=== PATIENT | female | born 1970 | race Caucasian/White ===

== ENCOUNTER 2022-07-31 07:09 | Outpatient (CLI) | payer BC, SELFPAY ==
--- NOTE | 2022-07-31 07:15 | CRLHL7_ITS ---
For Patients: As a result of the Century Cures Act, medical imaging exams and procedure reports are released immediately into your electronic medical record. You may view this report before your referring provider. If you have questions, please contact your health care provider. INDICATION: Right calf pain COMPARISON: None. TECHNIQUE: A compression venous ultrasound exam was performed of the right lower extremity using ramirez-scale imaging, color Doppler and spectral Doppler analysis. FINDINGS: Sonographic imaging of the right lower extremity demonstrates normal compressibility and color Doppler venous blood flow within the common femoral vein, deep femoral vein, and the proximal greater saphenous vein. Within the thigh, the femoral vein is patent and compressible. At a lower level, the popliteal and posterior tibial veins also show normal compressibility and color Doppler venous blood flow. Limited imaging of the contralateral groin demonstrates a normal spectral waveform and color Doppler venous blood flow within the left common femoral vein. IMPRESSION: Normal venous ultrasound exam. No evidence of deep vein thrombosis within the right lower extremity. Dictated by Benito Mariscal MD @ 07/31/2022 8:51:27 AM (Electronically Signed)
== END 2022-07-31 07:10 | disposition home or self-care (01) ==
LOC: US 07:10
PROVIDERS: PCP Physician Assistant Medical; Visit Provider Emergency Medicine
DX: M79.661 Pain in right lower leg (principal)
CPT/HCPCS: 93971

== ENCOUNTER 2022-08-27 08:55 | Outpatient (CLI) | payer BC, SELFPAY ==
[2022-08-27 14:09] LABS: Albumin* 4.1 g/dL (3.3-5.0)
[2022-08-27 14:10] LABS: Chloride* 104 mmol/L (96-114); Sodium* 140 mmol/L (135-149)
[2022-08-27 14:12] LABS: Aspartate Amino Transferase* 24 U/L (12-35); Bilirubin Total* 0.5 mg/dL (0.1-1.5); Carbon Dioxide* 30 mmol/L (20-32); Cholesterol* 196 mg/dL (90-199); Creatinine* 0.8 mg/dL (0.5-1.5); Estimated Glomerular Filt Rate 90 ml/min; Total Protein* 6.7 g/dL (6.0-8.3)
[2022-08-27 14:13] LABS: Alanine Aminotransferase* 24 U/L (4-35); Alkaline Phosphatase* 89 U/L (40-150); Blood Urea Nitrogen* 10 mg/dL (7-30); Calcium* 9.3 mg/dL (8.4-10.6); Glucose* 138 mg/dL (60-115); HDL Cholesterol* 52 mg/dL (>=50); LDL Cholesterol Calculated 96 mg/dL (<100); Triglycerides* 240 mg/dL (40-149)
[2022-08-27 14:28] LABS: Creatinine Urine 270.3 mg/dL
[2022-08-27 14:30] LABS: Microalbumin Creatinine Ratio 0 mg/g (0-30); Microalbumin Urine 1 mg/dL
[2022-08-27 14:56] LABS: Vitamin B12* 176 pg/mL (243-894)
== END 2022-08-27 08:56 | disposition home or self-care (01) ==
PROVIDERS: PCP Physician Assistant Medical; Visit Provider Physician Assistant Medical
DX: Z00.00 Encounter for general adult medical examination without abnormal findings (principal); E11.9 Type 2 diabetes mellitus without complications; E78.5 Hyperlipidemia, unspecified; I10 Essential (primary) hypertension
CPT/HCPCS: 80053; 80061; 82043; 82570; 82607; 84443

== ENCOUNTER 2022-10-01 15:11 | Outpatient (CLI) | payer BC, SELFPAY ==
[2022-10-01 14:31] LABS: Vitamin B12* > 1000 pg/mL (243-894)
== END 2022-10-01 15:12 | disposition home or self-care (01) ==
PROVIDERS: PCP Physician Assistant Medical; Visit Provider Physician Assistant Medical
DX: E53.8 Deficiency of other specified B group vitamins (principal)
CPT/HCPCS: 82607

== ENCOUNTER 2022-10-17 10:59 | Outpatient (CLI) | payer BC, SELFPAY | END 2022-10-17 11:00 | disposition home or self-care (01) | PROVIDERS: PCP Physician Assistant Medical; Visit Provider Internal Medicine | DX: Z12.11 Encounter for screening for malignant neoplasm of colon (principal); K63.5 Polyp of colon | CPT/HCPCS: 45380; 45385; 88305; J2250; J3010 ==

== ENCOUNTER 2022-10-31 07:53 | Outpatient (CLI) | payer BC, SELFPAY ==
--- NOTE | 2022-10-31 08:15 | CRLHL7_ITS ---
For Patients: As a result of the Cures Act, medical imaging exams and procedure reports are released immediately into your electronic medical record. You may view this report before your referring provider. If you have questions, please contact your health care provider. BILATERAL SCREENING MAMMOGRAM WITH COMPUTER-AIDED DETECTION AND TOMOSYNTHESIS TECHNIQUE: CC and MLO views were obtained. These mammographic images have been obtained using full-field digital technique. These mammographic images were interpreted with the benefit of computer-aided detection. Breast tomosynthesis was used in this interpretation. COMPARISON FILM: 10/02/20, 11/04/19, 10/27/18. FINDINGS: The breasts are heterogeneously dense, which may obscure small masses. IMPRESSION: There is no radiographic evidence for malignancy. ASSESSMENT: BI-RADS Category 2: Benign RECOMMENDATION: Routine screening mammogram in 1 year. A lay language report of this examination will be provided to the patient. FITO BRITTON M.D. Diagnostic/Nuclear Medicine Radiologist [email or web address] LAZARO:[email or web address] Transcribed: 10/31/2022, 1:[address]/Dictated by: Fito Britton MD @ 10/31/2022 9:16:00 AM (Electronically Signed)
== END 2022-10-31 07:54 | disposition home or self-care (01) ==
LOC: MAMMO 07:54
PROVIDERS: PCP Physician Assistant Medical; Visit Provider Physician Assistant Medical
DX: Z12.31 Encounter for screening mammogram for malignant neoplasm of breast (principal)
CPT/HCPCS: 77063; 77067

== ENCOUNTER 2023-09-28 09:58 | Outpatient (CLI) | payer BC, SELFPAY ==
--- NOTE | 2023-09-28 10:15 | CRLHL7_ITS ---
For Patients: As a result of the Cures Act, medical imaging exams and procedure reports are released immediately into your electronic medical record. You may view this report before your referring provider. If you have questions, please contact your health care provider. Indication: Right axillary swelling Technique: Grayscale and color Doppler ultrasound of the right axilla. Comparison: Mammogram images 10/31/2022 Findings: Normal soft tissues are present. No solid mass, fluid collection or adenopathy. No abnormal vascular Impression: Negative right axillary ultrasound. Dictated by Benito Mariscal MD @ 09/28/2023 10:33:12 AM (Electronically Signed)
== END 2023-09-28 09:59 | disposition home or self-care (01) ==
LOC: US 09:58
PROVIDERS: PCP Physician Assistant Medical; Visit Provider Physician Assistant Medical
DX: R22.31 Localized swelling, mass and lump, right upper limb (principal)
CPT/HCPCS: 76882

== ENCOUNTER 2023-10-16 07:55 | Outpatient (CLI) | payer BC, SELFPAY | END 2023-10-16 07:56 | disposition home or self-care (01) | LOC: NFLDREF 20:30 | PROVIDERS: PCP Physician Assistant Medical; Referring Provider Physician Assistant Medical; Visit Provider Physician Assistant Medical | DX: E11.9 Type 2 diabetes mellitus without complications (principal); I10 Essential (primary) hypertension; E53.8 Deficiency of other specified B group vitamins; R63.5 Abnormal weight gain; E78.5 Hyperlipidemia, unspecified | CPT/HCPCS: 80053; 80061; 82043; 82570; 82607; 83001; 84443 ==

== ENCOUNTER 2024-01-18 14:37 | Outpatient (CLI) | payer BC, SELFPAY ==
--- NOTE | 2024-01-18 15:00 | MM_ITS ---
Patient: HERNESTO HERNANDEZ Facility:?[facility] Patient ID:?[id number] Site Patient ID:?[id number]. Site :?1970 Study:?XRay-Breast Bilateral 3D W/CAD-01/18/2024 3:03:12 PM Ordering Physician:Medardo Final Report: BILATERAL SCREENING MAMMOGRAM WITH COMPUTER-AIDED DETECTION AND TOMOSYNTHESIS TECHNIQUE: CC and MLO views were obtained. These mammographic images have been obtained using full-field digital technique. These mammographic images were interpreted with the benefit of computer-aided detection. Breast Tomosynthesis was used in this interpretation. COMPARISON FILM: 10/31/22, 10/02/20, 11/04/19. FINDINGS: There are scattered areas of fibroglandular density IMPRESSION: There is no radiographic evidence for malignancy. ASSESSMENT: BI-RADS Category 2: Benign RECOMMENDATION: Routine screening mammogram in 1 year. A lay language report of this examination will be provided to the patient. Benito Mariscal M.D. Diagnostic Radiologist [email or web address] Transcribed: 2:18 p.mAntonina quinones/Dictated by: Benito Mariscal MD @ 01/19/2024 1:22:00 PM Signed by:?Benito Mariscal MD @01/19/2024 2:58:17 PM (Electronic Signature)
== END 2024-01-18 14:38 | disposition home or self-care (01) ==
LOC: MAMMO 14:38
PROVIDERS: PCP Physician Assistant Medical; Visit Provider Physician Assistant Medical
DX: Z12.31 Encounter for screening mammogram for malignant neoplasm of breast (principal)
CPT/HCPCS: 77063; 77067

== ENCOUNTER 2024-01-18 15:00 | Emergency (ER) | payer BC, SELFPAY ==
[2024-01-18 15:26] VITALS: BP 135/86; PULSE 77; RESP 18; TEMP 36.4; O2SAT 97; BMI 36.0
--- NOTE | 2024-01-18 16:20 | US_ITS ---
Patient: HERNESTO HERNANDEZ Facility:?[facility] Patient ID:?[id number] Site Patient ID:?[id number]. Site :?1970 Study:?US-Extremity Left LEV LT-01/18/2024 5:12:47 PM Ordering Physician:?ER Final Report: INDICATION: Leg pain and swelling. TECHNIQUE: Ultrasound venous duplex lower left extremity. Compression venous exam was performed using ramirez-scale, color Doppler, and spectral Doppler analysis. COMPARISON: None. FINDINGS: Deep veins: Sonographic imaging demonstrates the left common femoral, deep femoral, superficial femoral, popliteal, posterior tibial and the contralateral right common femoral veins to be fully compressible with normal color Doppler blood flow. Superficial veins: Greater saphenous vein is fully compressible. No popliteal cyst. IMPRESSION: Normal left lower extremity venous ultrasound, no sign of deep venous thrombosis. Dictated by Antolin Simms MD @ 01/18/2024 5:31:21 PM Signed by:?Antolin Simms MD @01/18/2024 5:31:21 PM (Electronic Signature)
--- NOTE | 2024-01-18 19:11 | ED.GENADULT ---
HPI - General Adult General Chief complaint: Lower Extremity Swelling Stated complaint: Swelling in legs Time Seen by Provider: 01/18/24 19:10 History of Present Illness HPI narrative: This is a very pleasant 53-year-old female with a past medical history of dyslipidemia (on a statin), hypertension (on losartan, hydrochlorothiazide), ongoing pain in her right lower extremity and foot, possibly due to neuropathy, history of peripheral edema intermittently, sleep apnea, low back pain. She presents to ER today with concern for pain in her left foot which is new as well as swelling in both of her lower extremities. She says that for the past several days she has been very active with her because they are remodeling their house. She has been on her feet a lot. She has developed swelling (which happens from time to time) and both of her lower extremities. He was quite severe yesterday it is lot as bad today. She has had some ongoing trouble with pain affecting her right lateral calf and right foot for the past 6 months or more. She is currently in therapy for that. She has also developed new pain affecting her left calf and the sole of her left foot for the past couple of days. No fever. She has not had any rash or redness of her foot or legs. No known injury or fall. No foreign bodies in her feet. No recent travel or immobilization. She has plans to travel to [place] to visit family in a couple of days. She called her primary care clinic today to get an appointment with the doctor was told to come here to the ER because of her leg pain in the potential risk for DVT. She has no history of DVT or PE. No history of malignancy. No history of hypercoagulability. Related Data Home Medications Medication Instructions Recorded Confirmed aspirin 81 mg tablet,delayed 81 mg PO QDAY 09/21/23 01/18/24 release ferrous sulfate 325 mg (65 mg 325 mg PO 3XW 09/21/23 01/18/24 iron) tablet (iron) Previous Rx's Medication Instructions Recorded hydrochlorothiazide 25 mg tablet 25 mg PO QDAY #90 tabs 09/09/23 losartan 25 mg tablet 25 mg PO QDAY #90 tabs 09/09/23 mecobalamin (vitamin B12) 5,000 5,000 mcg PO DAILY #90 tabs 09/09/23 mcg disintegrating tablet metformin 500 mg tablet,extended 2,000 mg (4 x 500 mg) PO DAILY for 09/09/23 release 24 hr diabetes mellitus #360 tabs rosuvastatin 20 mg tablet 20 mg PO QDAY #90 tabs 09/14/23 furosemide 20 mg tablet 20 mg PO DAILY #7 tabs 01/18/24 Allergies Allergy/AdvReac Type Severity Reaction Status Date / Time No Known Drug Allergies [facility]/18[facility]24 15:[facility] Medical History (Updated 01/18/24 @ 21:42 by Dylan Nicholson MD) Calf pain ?M79.669 - Pain in unspecified lower leg (ICD-10) Surgical History (Updated 08/05/22 @ 12:04 by Carolina Henderson) Hx of section ?Z98.891 - History of uterine scar from previous surgery (ICD-10) Hx of hysterectomy ?Z90.710 - Acquired absence of both cervix and uterus (ICD-10) Family History (Updated 08/27/22 @ 08:34 by Gloria To PA-C) Mother DVT (deep venous thrombosis) Leukemia Father Abdominal aortic aneurysm High blood pressure Coronary artery disease High cholesterol Maternal Grandmother Colon cancer Family/Other High blood pressure Paternal Grandfather Thyroid disease Daughter Bipolar disorder Social History (Updated 09/21/23 @ 09:09 by Brisa Turner ~ [facility], [facility]) Narrative: Patient is . She has 3 children ages22 , 19 and 15. Her oldest child is in college. 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 She does not smoke. Occasional Alcohol use. Denies recreational drug use. Smoking Status: Former smoker What tobacco products do you use: cigarettes Smoking quit date/years: >15 years ago Do you use any of these nicotine containing products: None Second hand tobacco smoke exposure: No How often do you have a drink containing alcohol: 2-4 times a month AUDIT-C Alcohol total score: 2 Non-prescribed substance use: denies use Little interest or pleasure in doing things: not at all Feeling down, depressed, or hopeless: not at all Exam Narrative: Exam Narrative: Constitutional: Appears well-developed and well-nourished. Alert. Conversant. Non toxic. HENT: Head: Atraumatic. Nose: Nose normal. Mouth/Throat: Oral mucosa is clear and moist. no trismus. Eyes: Conjunctivae normal. EOM normal. Pupils equal, round, and reactive to light. No scleral icterus. Neck: Normal range of motion. Neck supple. No tracheal deviation present. Cardiovascular: Normal rate, regular rhythm. No gallop. No friction rub. No murmur heard. Symmetric radial artery pulses Pulmonary/Chest: Effort normal. No stridor. No respiratory distress. No wheezes. No rales. No rhonchi . No tenderness. Abdominal: Soft. Bowel sounds normal. No distension. No mass. No tenderness. No rebound. No guarding. Musculoskeletal: RUE: Normal range of motion. No tenderness. No deformity LUE: Normal range of motion. No tenderness. No deformity RLE: Normal range of motion. 1+ edema. No tenderness. No deformity. Normal expected of the knee, lower leg, ankle, foot. No skin erythema or rash. No bruising. No ecchymosis. No palpable cord. Careful inspection of the right foot reveals no bony tenderness of the medial lateral malleolus of the ankle, calcaneus, midfoot, forefoot or toes. No palpable nodularity of the sole of her foot. No erythema or signs of infection. LLE: Normal range of motion. 1+ edema. No tenderness. No deformity Lymph: No sign of ascending lymphangitis in the lower extremities Neurological: Alert and oriented to person, place, and time. Normal strength. CN II-VII intact. No sensory deficit. GCS eye subscore is 4. GCS verbal subscore is 5. GCS motor subscore is 6. Normal coordination Skin: Skin is warm and dry. No rash noted. No pallor. Normal capillary refill. Psychiatric: Normal mood. Normal affect. Const: Vital Signs, click to edit/add: Vital Signs - 24 hr 01/18/24 15:26 Temperature 97.6 F Pulse Rate [Pulse Oximeter] 77 Respiratory Rate 18 Blood Pressure [Ri ght Upper Arm] 135/86 Pulse Oximetry 97 Oxygen Delivery Me thod Room Air Course Vital Signs Vital signs: Initial Vital Signs Temperature 97.6 F 01/18/24 15:26 Temperature Source Temporal Artery Scan 01/18/24 15:26 Pulse Rate 77 01/18/24 15:26 Respiratory Rate 18 01/18/24 15:26 Blood Pressure 135/86 01/18/24 15:26 Blood Pressure Mean 102 01/18/24 15:26 Blood Pressure Position Sitting 01/18/24 15:26 Pulse Oximetry 97 01/18/24 15:26 Oxygen Delivery Method Room Air 01/18/24 15:26 Vital Signs Temperature 97.6 F 01/18/24 15:26 Pulse Rate 77 01/18/24 15:26 Respiratory Rate 18 01/18/24 15:26 Blood Pressure 135/86 01/18/24 15:26 Pulse Oximetry 97 01/18/24 15:26 Oxygen Delivery Method Room Air 01/18/24 15:26 Temperature 97.6 F 01/18/24 15:26 Pulse Rate 77 01/18/24 15:26 Respiratory Rate 18 01/18/24 15:26 Blood Pressure 135/86 01/18/24 15:26 Pulse Oximetry 97 01/18/24 15:26 Oxygen Delivery Method Room Air 01/18/24 15:26 Medical Decision Making MDM Narrative Medical decision making narrative: Very pleasant 53-year-old female sent to the ER today by her primary care clinic because of bilateral lower extremity peripheral edema and new left calf and left foot pain. Concern from clinic was possible DVT. Duplex ultrasound was obtained at the time of triage and is negative for any DVT. On my exam I do not see any palpable cord or any other clear exam findings to suggest DVT. Overall ink the risk is low. With recently being on her feet a history of foot stress fractures we did obtain x-rays of her left foot to look for any sign of any new acute fracture. X-rays are negative. Incidentally there is a small rounded foreign body near the mid foot which probably represents a previous old, healed fracture fragment. No evidence for any other fracture or dislocation of the foot. No signs of any significant calcaneus bone spurs. Differential for foot pain would include neuropathic pain, plantar fasciitis, among others. At this point no evidence for cellulitis. She also has bilateral lower extremity peripheral edema this week. This too has happened her occasionally in the past but never this severe. It is actually getting better already compared to yesterday. Will try her on a short course of Lasix for the peripheral edema. She will follow up her primary care provider within 1 week for recheck to consider long-term diuretic use or other means for managing her peripheral edema. Imaging Data US leg: Attestation: I have reviewed the pertinent imaging results. Radiologist's impression: IMPRESSION: Normal left lower extremity venous ultrasound, no sign of deep venous thrombosis. XR Left foot: Attestation: I have reviewed the pertinent imaging results. Radiologist's impression: Comparison: None. Findings: Bones: Alignment is normal. No fractures or bone lesions. Joint spaces: Unremarkable. Soft tissues: Unremarkable. Discharge Plan Discharge Clinical Impression: Acute foot pain, Edema, peripheral Patient Disposition: Home, Self-Care Condition: Stable Instructions: Leg Edema (ED) Additional Instructions: As we discussed, please come back to the ER right away if you have any worsening problems especially worsening pain, increasing swelling, high fever, chest pain or trouble breathing, or if any other problems. Please start on the furosemide once daily for 7 days and follow up with your doctor within about 7-10 days for recheck. Prescriptions: New furosemide 20 mg tablet 20 mg PO DAILY Qty: 7 2RF No Action aspirin 81 mg tablet,delayed release (DR/EC) 81 mg PO QDAY ferrous sulfate [iron] 325 mg (65 mg iron) tablet 325 mg PO 3XW hydrochlorothiazide 25 mg tablet 25 mg PO QDAY Qty: 90 3RF Rx Instructions: once daily for blood pressure losartan 25 mg tablet 25 mg PO QDAY Qty: 90 3RF Rx Instructions: once daily for blood pressure mecobalamin (vitamin B12) 5,000 mcg tablet,disintegrating 5,000 mcg PO DAILY Qty: 90 3RF metformin 500 mg tablet extended release 24 hr 2,000 mg PO DAILY Qty: 360 3RF rosuvastatin 20 mg tablet 20 mg PO QDAY Qty: 90 3RF Rx Instructions: Once daily for cholesterol Follow Up/Referrals: Gloria To PA-C [Primary Care Provider] - Stand Alone Forms: [employer] Info Instructions
--- NOTE | 2024-01-18 19:51 | XR_ITS ---
Patient: HERNESTO HERNANDEZ Facility:?[facility] Patient ID:?[id number] Site Patient ID:?[id number]. Site :?1970 Study:?XRay-Extremity Left Foot 3v-01/18/2024 8:06:33 PM Ordering Physician:?Dylan Nicholson Final Report: Indication: Foot pain and swelling. Technique: Left foot 3 views. Comparison: None. Findings: Bones: Alignment is normal. No fractures or bone lesions. Joint spaces: Unremarkable. Soft tissues: Unremarkable. Dictated by Antolin Simms MD @ 01/18/2024 9:09:39 PM Signed by:?Antolin Simms MD @01/18/2024 9:09:39 PM (Electronic Signature)
== END 2024-01-18 21:58 | disposition home or self-care (01) ==
PROVIDERS: Emergency Provider Emergency Medicine; PCP Physician Assistant Medical
DX: R60.9 Edema, unspecified (principal); M79.672 Pain in left foot
CPT/HCPCS: 73630; 77063; 77067; 93971; 99283; 99284

== ENCOUNTER 2024-02-10 15:45 | Outpatient (RCR) | payer BC, SELFPAY | END 2024-04-14 13:58 | disposition home or self-care (01) | PROVIDERS: PCP Physician Assistant Medical; Visit Provider Family Medicine | DX: M54.50 Low back pain, unspecified (principal); Z51.89 Encounter for other specified aftercare | CPT/HCPCS: 97012; 97032; 97110; 97140; 97161 ==

== ENCOUNTER 2024-04-11 13:58 | Outpatient (CLI) | payer BC, SELFPAY | END 2024-04-11 13:59 | disposition home or self-care (01) | PROVIDERS: PCP Physician Assistant Medical; Visit Provider Physician Assistant Medical | DX: I73.9 Peripheral vascular disease, unspecified (principal) | CPT/HCPCS: 93924 ==

== ENCOUNTER 2024-10-17 15:11 | Outpatient (CLI) | payer BC, SELFPAY | END 2024-10-17 15:12 | disposition home or self-care (01) | LOC: NFLDREF 10-20 04:40 | PROVIDERS: PCP Physician Assistant Medical; Referring Provider Physician Assistant Medical; Visit Provider Physician Assistant Medical | DX: E78.5 Hyperlipidemia, unspecified (principal); E11.9 Type 2 diabetes mellitus without complications; E53.8 Deficiency of other specified B group vitamins; Z79.84 Long term (current) use of oral hypoglycemic drugs | CPT/HCPCS: 80061; 82043; 82570; 82607 ==

== ENCOUNTER 2025-03-15 14:15 | Outpatient (CLI) | payer BC, SELFPAY ==
--- NOTE | 2025-03-15 14:40 | CRLHL7_ITS ---
For Patients: As a result of the Century Cures Act, medical imaging exams and procedure reports are released immediately into your electronic medical record. You may view this report before your referring provider. If you have questions, please contact your health care provider. INDICATION: BILATERAL SCREENING MAMMOGRAM, ASYMPTOMATIC 54 Y/O FEMALE COMPARISON: 01/18/2024, 10/31/2020, 04/01/2021 TECHNIQUE: Digital mammogram in CC and MLO projections including computer-aided detection (CAD) and tomosynthesis. BREAST COMPOSITION: The breasts are heterogeneously dense, which may obscure small masses. FINDINGS: No suspicious findings. ASSESSMENT: BI-RADS 1 Negative RECOMMENDATION: Annual screening mammogram. A lay language report of this examination will be provided to the patient. Dictated by: Benito Mariscal MD @ 03/16/2025 13:21:21 (Electronically Signed)
== END 2025-03-15 14:16 | disposition home or self-care (01) ==
LOC: MAMMO 14:16
PROVIDERS: PCP Physician Assistant Medical; Visit Provider Physician Assistant Medical
DX: Z12.31 Encounter for screening mammogram for malignant neoplasm of breast (principal); R92.333 Mammographic heterogeneous density, bilateral breasts
CPT/HCPCS: 77063; 77067